=== PATIENT | female | born 1980 | race African-American/Black ===

== ENCOUNTER 2019-01-05 19:11 | Emergency (ER) | payer SELFPAY ==
--- NOTE | 2019-01-05 19:29 | Emergency Department Record ---
History of Present Illness - General Chief Complaint: Knee injury Stated Complaint: FALL/RT KNEE PAIN Time Seen by Provider: 01/05/19 19:14 Source: Patient Mode of Arrival: Ambulatory (With crutches) Limitations: No limitations - History of Present Illness Initial Comments: 38 yo female presents to ED for evaluation of right knee pain following a fall down steps approximately 7 hours ago. Patient reports pain with ambulating, reports that she is able to ambulate with crutches. Patient denies other injury on examination, denies health problems at her baseline. MD Complaint: Knee injury Onset/Timin -: Hour(s) Injury: Knee: Right Type of Injury: Blunt Place: Home Severity: Moderate Improves With: Nothing Worsens With: Weight bearing Context: Direct blow - Related Data Home Medications Medication Instructions Recorded Confirmed Last Taken Hydrochlorothiazide [Hctz] 50 mg PO DAILY PRN 01/05/19 01/05/19 Unknown Hydrocodone/Acetaminophen [[place] 1 tab PO BID PRN 01/05/19 01/05/19 Unknown 5mg/325mg] Ibuprofen [Motrin] 800 mg PO Q8H PRN 01/05/19 01/05/19 Unknown Allergies Allergy/AdvReac Type Severity Reaction Status Date / Time Penicillins Allergy HIVES Verified 01/05/19 19:21 Review of Systems Constitutional: Denies: Chills, Fever, Malaise, Night sweats Eyes: Denies: Eye discharge, Eye pain ENT: Denies: Congestion, Ear pain, Epistaxis Respiratory: Denies: Cough, Dyspnea Cardiovascular: Denies: Chest pain, Dyspnea on exertion Endocrine: Denies: Fatigue, Heat or cold intolerance Gastrointestinal: Denies: Abdominal pain, Nausea, Vomiting Genitourinary: Denies: Incontinence, Retention Musculoskeletal: Reports: Arthralgia. Denies: Back pain, Gout, Joint swelling Skin: Denies: Bruising, Change in color Neurological: Denies: Confusion, Headache, Seizure Psychiatric: Denies: Anxiety Hematological/Lymphatic: Denies: Anemia, Blood Clots Physical Exam - General General Appearance: Alert, Oriented x3, Cooperative, Mild distress Limitations: No limitations - Head Head exam: Atraumatic, Normocephalic, Normal inspection Head exam detail: negative: Abrasion, Contusion, Cortes's sign, General tenderness, Hematoma, Laceration - Eye Eye exam: Normal appearance. negative: Conjunctival injection, Periorbital swelling, Periorbital tenderness, Scleral icterus - ENT Ear exam: negative: Auricular hematoma, Auricular trauma Nasal Exam: negative: Active bleeding, Discharge, Dried blood, Foreign body Mouth exam: negative: Drooling, Laceration, Muffled voice, Tongue elevation - Neck Neck exam: Normal inspection. negative: Meningismus, Tenderness - Respiratory Respiratory exam: Normal lung sounds bilaterally. negative: Rales, Respiratory distress, Rhonchi, Stridor - Cardiovascular Cardiovascular Exam: Regular rate, Normal rhythm, Normal heart sounds - GI/Abdominal GI/Abdominal exam: Soft. negative: Rebound, Rigid, Tenderness - Rectal Rectal exam: Deferred - exam: Deferred - Extremities Extremities exam: Other (Ligaments of the right knee are stable or drawer testing, no pain with palpation of the anterior/posterior knee. Normal dorsiflexion/plantar flexion on examination.). negative: Calf tenderness, Pedal edema, Tenderness - Back Back exam: Denies: CVA tenderness (R), CVA tenderness (L) - Neurological Neurological exam: Alert, Oriented X3 - Psychiatric Psychiatric exam: Normal affect, Normal mood - Skin Skin exam: Normal color. negative: Abrasion Type of lesion: negative: abrasion Course Vital Signs 01/05/19 19:20 Temperature 98.2 F Pulse Rate [ 81 Pulse Ox Probe] Respiratory 24 Rate Blood Pressure 173/118 [Left Arm] Pulse Ox 97 - Reevaluation(s) Reevaluation #1: 01/05/19 20:13 Right knee: No acute fracture identified Osteochondroma of the distal femur Recommend MRI if symptoms persist Patient was updated her radiograph results, patient has crutches, knee immobilizer cannot be used due to the size of the patient's knee. Patient's pain symptoms appear well controlled on examination, compartments of the lower leg are soft on examination, and the patient appears stable for discharge at this time. 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 Ibuprofen, ice as directed. Follow-up with your family doctor in 3-5 days as directed. Forms: Patient Portal Access Time of Disposition: 20:18 Quality - Quality Measures Quality Measures: N/A - Blood Pressure Screening Does Patient Have Any of the Following: No Blood Pressure Classification: Hypertensive Reading Systolic Measurement: 173 Diastolic Measurement: 118 Screening for High Blood Pressure: < First Hypertensive BP, F/U Documented > [ [id number]] First Hypertensive Follow-up Interventions: Referral to alternative/primary care provider.
== END 2019-01-05 20:44 | disposition home or self-care (01) ==
LOC: ER 19:11
DX: S86.911A Strain of unspecified muscle(s) and tendon(s) at lower leg level, right leg, initial encounter (principal); D16.21 Benign neoplasm of long bones of right lower limb; W10.9XXA Fall (on) (from) unspecified stairs and steps, initial encounter; Y92.009 Unspecified place in unspecified non-institutional (private) residence as the place of occurrence of the external cause
CPT/HCPCS: 99283